=== PATIENT | female | born 1960 | race Caucasian/White ===

== ENCOUNTER → 2016-10-03 | Outpatient (REF) ==
--- NOTE | 2016-10-04 02:48 | REP ---
Clinical: Pain and disability. Technique: Neutral and frog lateral views of the right hip. Findings: Minimal age-related joint space narrowing and subtle increased sclerosis to the acetabular roof appreciated. No overt osteoarthritic degenerative changes are appreciated. No acute fracture or dislocation. Surrounding soft tissues unremarkable. No periarticular calcifications. Impression: Mild age-related changes. Signed by Ousmane Pang MD 10/04/2016 02:39 A
== END ==
LOC: M SMT 14:41
PROVIDERS: ATTEND Internal Medicine
DX: M54.5 Low back pain (principal)

== ENCOUNTER → 2018-06-30 | Outpatient (CLI) | payer OTHER ==
--- NOTE | 2018-06-30 15:44 | REP ---
MAXILLOFACIAL CT WITHOUT CONTRAST: HISTORY: Gait disturbance. The sinuses are clear. The osteomeatal units are patent. The middle and inferior nasal turbinates are partially paradoxical. There is minimal deviation of the nasal septum to the right. The cribriform plate, medial cruz of the orbits, and optic canals are intact. The carotid canals form a segment of the posterolateral cruz of the sphenoid sinus. The sphenoid sinus septum inserts into the left internal carotid canal wall. IMPRESSION: There is no acute or chronic sinusitis. Electronically Signed by John Arteaga MD 06/30/2018 03:58 P
== END ==
LOC: M RAD 14:57
PROVIDERS: ATTEND Otolaryngology
DX: R43.9 Unspecified disturbances of smell and taste (principal)

== ENCOUNTER → 2019-08-19 | Outpatient (REF) | payer OTHER | LOC: M LAB REF 09:58 | PROVIDERS: ATTEND Ophthalmology | DX: H02.831 Dermatochalasis of right upper eyelid (principal); H02.834 Dermatochalasis of left upper eyelid ==

== ENCOUNTER 2023-07-16 07:56 | Day surgery (SDC) | payer OTHER ==
[~2023-07-16] VITALS: Ht 157.5 cm; Wt 88.0 kg
[~2023-07-16 07:56] MED LIST: ASPI81TA26 PO; CITA20TA6 PO; ESTR125TA PO; FURO40TA2 PO; LR 1,000 ML IV SCH; OCUV1CAP4 PO; OMEP40CA4 PO; ROSU10TA6 PO; SYNT25TA PO
[2023-07-16] MEDS ORDERED: propofoL 200 MG/20 ML VIAL As Ordered ONE (08:10)
[2023-07-16] MEDS ORDERED: LIDOCAINE 2% 100MG/5ML SDV (FOR ANES.) As Ordered ONE (08:11)
[2023-07-16] MEDS ORDERED: ROCURONIUM BROMIDE 50MG/5ML VIAL As Ordered ONE (08:11)
[2023-07-16] MEDS ORDERED: MIDAZOLAM INJ 2MG/2ML VIAL As Ordered ONE (09:22)
[2023-07-16] MEDS ORDERED: fentaNYL 100 MCG/2 ML INJECTION As Ordered ONE (09:23)
[2023-07-16] MEDS: ceFAZolin SOD 2 GM in IV 1 EA IV ONE (09:35)
[2023-07-16] MEDS ORDERED: ONDANSETRON 4MG 2ML VIAL As Ordered ONE (10:41)
[2023-07-16] MEDS ORDERED: KETOROLAC 60MG 2ML VIAL As Ordered ONE (10:55)
[2023-07-16] MEDS ORDERED: fentaNYL 100 MCG/2 ML INJECTION IV PRN (11:10)
[2023-07-16] MEDS ORDERED: LR 1,000 ML IV SCH (11:10)
[2023-07-16] MEDS ORDERED: oxyCODONE 5MG TAB PO STA (12:04)
[2023-07-16] MEDS ORDERED: HYDROMORPHONE HCL 0.5 MG/ 0.5 ML SYRINGE IV STA (12:04)
[2023-07-16] MEDS: ONDANSETRON 4MG 2ML VIAL IV PRN (12:19)
[2023-07-16] MEDS: HYDROMORPHONE HCL 0.5 MG/ 0.5 ML SYRINGE IV PRN (12:20)
[2023-07-16] MEDS: oxyCODONE 5MG TAB PO PRN (12:20)
[2023-07-16 13:35] VITALS: BP 138/65; TEMP 97.4; O2SAT 94
== END 2023-07-16 13:45 | disposition home or self-care (01) ==
LOC: M SDC 07:56
PROVIDERS: ATTEND Surgery
DX: K43.0 Incisional hernia with obstruction, without gangrene (principal); G47.30 Sleep apnea, unspecified; E78.00 Pure hypercholesterolemia, unspecified; E03.9 Hypothyroidism, unspecified; K21.9 Gastro-esophageal reflux disease without esophagitis; F41.9 Anxiety disorder, unspecified; F32.A Depression, unspecified; Z91.040 Latex allergy status; Z79.899 Other long term (current) drug therapy; Z79.82 Long term (current) use of aspirin; Z79.890 Hormone replacement therapy
CPT/HCPCS: 49615; C1781; C9290; J0665; J0690; J1170; J1885; J2250; J2405; J3010